=== PATIENT | male | born 1975 | race Caucasian/White ===

== ENCOUNTER 2022-03-03 05:48 | Emergency (ER) | payer BC, SELFPAY ==
[2022-03-03 06:00] VITALS: BP 122/87; PULSE 68; RESP 18; TEMP 36.4; O2SAT 98
[2022-03-03] MEDS: FAMOTIDINE 20 MG TABLET PO (07:06)
[2022-03-03] MEDS: diphenhydrAMINE HCl CAP 25 MG CAPSULE 50 MG PO (07:06)
[2022-03-03] MEDS: DEXAMETHASONE 4 MG TABLET 12 MG (07:07)
--- NOTE | 2022-03-03 07:08 | ED.GENADULT ---
HPI - General Adult General Chief complaint: Eye Problems Stated complaint: Allergic Reaction History of Present Illness HPI narrative: This is a 38 year male presenting ED with eye pain he says he is taking his prep colonoscopy scheduled today. He had a sudden onset of swelling 100 injection eye pain. Again department. Patient denies any exposure to sort chemicals. Denies any hives wheezing sensation of throat closure, nausea or vomiting. He was having diarrhea from his colonoscopy prep. Patient has never had a reaction like this in the past. Related Data Allergies Allergy/AdvReac Type Severity Reaction Status Date / Time No Known Allergies Allergy Verified 03/03/22 06:15 Review of Systems Constitutional: Constitutional: Reports chills Eyes: Eyes: Reports photophobia ENT: Denies dysphagia Cardiovascular: Cardiovascular: Denies chest pain Respiratory: Respiratory: Denies chest congestion Gastrointestinal: Gastrointestinal: Denies abdominal pain Genitourinary: Genitourinary: Denies hematuria Musculoskeletal: Musculoskeletal: Denies back pain Integumentary/Breasts: Skin/Breast: Denies breast pain Neurologic: Denies confusion Psychiatric: Psychiatric: Denies anxiety Endocrine: Endocrine: Denies excessive sweating Hematologic/Lymphatic: Hematologic/Lymphatic: Denies easy bleeding Allergic/Immunologic: Allergic/Immunologic: Denies lip swelling Exam Const: General: healthy appearing HENMT: Head: normal to inspection Ears: external ears normal General nose exam: Normal external nose present Face and sinus: normal facial exam Mouth: Yes Normal oral and palatal mucosa present Teeth and gingiva: dentition normal Eyes: Conjunctivae: conjunctivae normal and conjunctival abnormality ( Bilateral conjunctival injection with clear watery discharge) bilateral Pupils: Equal, round and reactive pupils present EOM: EOMs intact bilaterally Direct Ophthalmoscopy: photophobia Neck: Neck: normal visual inspection Chest: Chest palpation & inspection: normal inspection of the chest Resp: Effort & Inspection: normal respiratory effort Cardio: Rate: regular rate Rhythm: regular rhythm GI: GI Palp: Yes Soft to palpation, No Tenderness to palpation present (GI) and No Guarding due to palpation present (GI) : General: Yes bladder normal to palpation Back/Spine/Pelvis: Back: no CVA tenderness Skin: General skin exam: normal color Neuro: General: patient oriented x3 Extrem: General: normal to inspection Psych: Mental Status: mental status grossly normal Attitude: cooperative Course Vital Signs Vital signs: Vital Signs Temperature 97.5 F L 03/03/22 06:00 Pulse Rate 68 03/03/22 06:00 Respiratory Rate 18 03/03/22 06:00 Blood Pressure 122/87 03/03/22 06:00 Pulse Oximetry 98 03/03/22 06:00 Oxygen Delivery Room Air 03/03/22 06:00 Temperature 97.5 F L 03/03/22 06:00 Pulse Rate 68 03/03/22 06:00 Respiratory Rate 18 03/03/22 06:00 Blood Pressure 122/87 03/03/22 06:00 Pulse Oximetry 98 03/03/22 06:00 Oxygen Delivery Room Air 03/03/22 06:00 Medical Decision Making MDM Narrative Medical decision making narrative: patient is presenting more appears to be an allergic conjunctivitis following his colonoscopy prep. Patient has no systemic signs of anaphylaxis. We treated with dexamethasone, Benadryl and Pepcid. Differential Diagnosis Differential Diagnosis: allergic conjunctivitis Vital Signs Vital Signs: Vital Signs Temperature 97.5 F L 03/03/22 06:00 Pulse Rate 68 03/03/22 06:00 Respiratory Rate 18 03/03/22 06:00 Blood Pressure 122/87 03/03/22 06:00 Pulse Oximetry 98 03/03/22 06:00 Oxygen Delivery Room Air 03/03/22 06:00 Temperature 97.5 F L 03/03/22 06:00 Pulse Rate 68 03/03/22 06:00 Respiratory Rate 18 03/03/22 06:00 Blood Pressure 122/87 03/03/22 06:00 Pulse Oximetry 98 03/03/22 06:00 Oxygen Delivery
[2022-03-03 07:30] VITALS: BP 125/74; PULSE 74; RESP 18; TEMP 36.6; O2SAT 99
== END 2022-03-03 07:32 | disposition home or self-care (01) ==
PROVIDERS: Emergency Provider Emergency Medicine; PCP Internal Medicine
DX: H10.13 Acute atopic conjunctivitis, bilateral (principal)
CPT/HCPCS: 99283; A9270; J8540

== ENCOUNTER 2024-07-06 00:45 | Day surgery (SDC) | payer BC, SELFPAY ==
[2024-06-20 09:12] VITALS: BMI 26.5
--- NOTE | 2024-07-05 16:20 | P.PNAN_ITS ---
Anes - Eval Pre Procedure Procedure: Operation Date: 07/06/24 10:30 Proposed Procedures p Screening Colonoscopy - Darwin Fung DO Date/Time: 07/05/24 16:20 Pre Op Diagnosis: Screening for malignant neoplasm of colon Patient Data Age: 49 Gender: M Height: 1.78 m Weight: 84 kg Allergies Allergy/AdvReac Type Severity Reaction Status Date / Time No Known Allergies Allergy Verified 06/20/24 09:10 Home Medications Medication Instructions Recorded Confirmed Type sodium,potassium,mag sulfates 17.5 16 oz PO ONCE #354 mL 05/10/24 06/20/24 Rx gram-3.13 gram-1.6 gram oral soln (Suprep Bowel Prep Kit) Patient hx anesthesia problems: none Family hx anesthesia problems: none Results Review: All pre-operative results and documents have been reviewed as part of the pre- operative evaluation. [facility] Social History Social History Smoking status: Never smoker Substance use type: does not use Living arrangements: alone Exam Day of Procedure 07/05/24 16:20 Patient weight: overweight
[2024-07-06 09:38] VITALS: BP 136/68; PULSE 56; RESP 16; TEMP 36.6; O2SAT 98
[2024-07-06] MEDS: LACTATED RINGERS 1,000 ML 150 ML IV CONT (09:55)
--- NOTE | 2024-07-06 10:14 | P.PNAN_ITS ---
Anes - Initial Pre Proc Eval Procedure: Operation Date: 07/06/24 10:30 Proposed Procedures p Screening Colonoscopy - Darwin Fung DO Date/Time: 07/06/24 10:14 Surgeon: Darwin Fung DO Pre Op Diagnosis: Screening for malignant neoplasm of colon Patient Data Age: 49 Gender: M Height: 1.78 m Weight: 84.4 kg Last Vital Signs Temp 36.6 C 07/06/24 09:38 Pulse 56 L 07/06/24 09:38 Resp 16 07/06/24 09:38 BP 136/68 07/06/24 09:38 Pulse Ox 98 07/06/24 09:38 O2 Del Method Room Air 07/06/24 09:38 Allergies Allergy/AdvReac Type Severity Reaction Status Date / Time No Known Allergies Allergy Verified 07/06/24 09:36 Patient hx anesthesia problems: none Family hx anesthesia problems: none Results Review: All pre-operative results and documents have been reviewed as part of the pre- operative evaluation. [facility] Social History Social History Smoking status: Never smoker Substance use type: does not use Living arrangements: alone Anes - Eval Final PreProcedure Day of Procedure 07/06/24 10:14 Patient weight: normal Heart: regular rate and rhythm Lungs: clear to auscultation Airway: Mallampati scale class 1 Neurological: alert and oriented Last oral intake: >/= 8 hours ASA classification: I Emergent: no Anesthetic plan: proceed Anesthesia type and monitoring: general GIVS and standard monitoring Results Review: All pre-operative results and documents have been reviewed as part of the pre- operative evaluation. Informed Consent: The patient's anesthetic plan and its attendant risks and benefits were discussed with the patient/family/POA. Questions were solicited and answers provided to the satisfaction of the patient/family/POA.
--- NOTE | 2024-07-06 10:58 | PM.IMHP ---
H&P: HPI History of Present Illness Date/Time: 07/06/24 10:58 Chief Complaint: Screening for colorectal cancer Narrative: this is a 49-year-old man who presents for colonoscopy. He has never had a colonoscopy before. He denies any hematochezia or melena. He denies any first-degree relatives with colon cancer but did have a grandfather who had colon cancer. Review of Systems Review of Systems: All systems reviewed & are unremarkable except as noted in HPI and below Constitutional: Constitutional: Denies chills, Denies fever(s), Denies headache(s) and Denies weight loss Eyes: Eyes: Denies change in vision ENT: Denies dizziness, Denies headache(s), Denies neck mass and Denies throat swelling Cardiovascular: Cardiovascular: Denies chest pain, Denies lightheadedness and Denies dyspnea Respiratory: Respiratory: Denies cough, Denies dyspnea and Denies wheezing Gastrointestinal: Gastrointestinal: Denies abdominal pain, Denies change in bowel habits, Denies nausea and Denies vomiting Genitourinary: Genitourinary: Denies hematuria and Denies dysuria Musculoskeletal: Musculoskeletal: Reports as per HPI Integumentary/Breasts: Skin/Breast: Reports as per HPI Neurologic: Denies dizziness and Denies headache(s) Allergic/Immunologic: Allergic/Immunologic: Denies throat swelling and Denies wheezing [facility] Social History Social History Smoking status: Never smoker Substance use type: does not use Living arrangements: alone Meds Home Medications and Allergies Allergies Allergy/AdvReac Type Severity Reaction Status Date / Time No Known Allergies Allergy Verified 07/06/24 09:36 Vital Signs Vital Signs - 24 hr 07/06/24 09:38 Temperature 97.8 F Pulse Rate 56 L Respiratory Rate 16 Blood Pressure 136/68 Pulse Oximetry 98 Oxygen Delivery Room Air Exam Const: General: no acute distress and alert Orientation/consciousness: patient oriented x3 HENMT: Head: normocephalic and atraumatic Ears: hearing grossly normal bilaterally Face/Nose/Sinus: Normal nares present Mouth: Yes Normal oral and palatal mucosa present Eyes: Periorbital: periorbital findings normal Sclera: sclerae normal EOM: EOMs intact bilaterally Neck: Neck: normal visual inspection, no lymphadenopathy and trachea midline Chest: Chest palpation & inspection: normal inspection of the chest Resp: Effort & Inspection: normal respiratory effort Auscultation: clear to auscultation bilaterally Cardio: Jugular venous distension: no JVD Rate: regular rate Rhythm: regular rhythm Heart sounds: S1 normal heart sound present and S2 normal heart sound present Peripheral pulses: Peripheral pulses 2+ throughout GI: Inspection: normal to inspection GI Palp: Yes Soft to palpation, No Tenderness to palpation present (GI), No Guarding due to palpation present (GI) and No Rebound tenderness present Percussion: Yes normal to percussion Auscultation: normal bowel sounds : General: Yes no CVA tenderness Back/Spine/Pelvis: Back: no CVA tenderness Neuro: General: patient oriented x3, no focal motor deficits and CN's II-XI intact bilaterally Cognition (Neuro): normal cognition Speech: normal speech Motor exam (neuro): 5/5 motor strength present throughout Extrem: General: capillary refill normal and no clubbing, cyanosis or edema Assessment and Plan Assessment and plan (1) Screening for colorectal cancer: Code(s): Z12.11 - Encounter for screening for malignant neoplasm of colon; Z12.12 - Encounter for screening for malignant neoplasm of rectum Status: Acute Assessment and Plan: I have recommended colonoscopy. I have discussed the procedure, risks, benefits, and alternatives. Questions were answered. Patient is agreeable to proceed.
[2024-07-06 11:22] VITALS: BP 92/56; PULSE 61; RESP 14; O2SAT 98
[2024-07-06 11:32] VITALS: BP 106/50; PULSE 65; RESP 16; O2SAT 98
[2024-07-06 11:42] VITALS: BP 114/84; PULSE 68; RESP 16; O2SAT 98
== END 2024-07-06 11:57 | disposition home or self-care (01) ==
PROVIDERS: PCP Internal Medicine; Visit Provider Surgery
PROC: 0DJD8ZZ Inspection of Lower Intestinal Tract, Via Natural or Artificial Opening Endoscopic (ICD-10-PCS; CPT 45378; principal; 2024-07-06 10:30)
DX: Z12.11 Encounter for screening for malignant neoplasm of colon (principal)
CPT/HCPCS: 45378; J2003; J2704; J7120